=== PATIENT | male | born 1985 | race Caucasian/White ===

== ENCOUNTER 2021-08-18 01:16 | Emergency (ER) | payer MEDICAID ==
[~2021-08-18] VITALS: Ht 170.2 cm; Wt 86.2 kg
[~2021-08-18 01:16] MED LIST: BUPR1FIL3 SL
--- NOTE | 2021-08-18 01:39 | NUR ---
BIBWIFE C/O DIFFICULTY BREATHING, Dx PNA X 1 WEEK. PATINET IS A/O X 4, RR EVEN AND UNLABORED. PATIENT TAKEN TO ER BED 12. 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
[2021-08-18 01:40] VITALS: BP 156/80
--- NOTE | 2021-08-18 01:40 | NUR ---
EMT AT PT'S BEDSIDE FOR EKG
[2021-08-18] MEDS ORDERED: IOHEXOL-350 100 ML VIAL IV ONE (01:46)
[2021-08-18] MEDS ORDERED: IV NS 0.9% 250 ML IV ONE (01:46)
--- NOTE | 2021-08-18 01:51 | NUR ---
ADMINISTRATIVE SUPPORT SPECIALIST AT PT'S BEDSIDE
[2021-08-18] MEDS ORDERED: IV NS 0.9% 1,000 ML BAG IV ONE (02:00)
--- NOTE | 2021-08-18 02:10 | NUR ---
Patient does not wish to proceed with medical care recommended by Dr. JAIMES. Patient given information related to possible complications, up to and including , which could occur as a result of leaving the hospital at this time. Patient verbalizes understanding of risks involved due to leaving against medical advice. Patient has signed AMA form.
== END 2021-08-18 02:17 | disposition left against medical advice (07) ==
LOC: ER 01:20
DX: R06.00 Dyspnea, unspecified (principal); Z79.899 Other long term (current) drug therapy
CPT/HCPCS: J7030; J7050; Q9967